=== PATIENT | female | born 1975 ===

== ENCOUNTER 2021-03-20 03:18 | Outpatient (CLI) | payer MEDICAID, SELFPAY ==
[2021-03-20 10:59] LABS: Source Nasal/Nares
[2021-03-20 12:54] LABS: COVID-19 PCR Negative (Negative)
== END 2021-03-20 03:19 | disposition home or self-care (01) ==
PROVIDERS: Visit Provider Otolaryngology
DX: Z20.822 Contact with and (suspected) exposure to COVID-19 (principal); Z01.818 Encounter for other preprocedural examination
CPT/HCPCS: 87635

== ENCOUNTER 2022-01-04 21:40 | Outpatient (CLI) | payer MEDICAID, SELFPAY ==
--- NOTE | 2022-01-04 14:21 | DI.RAD_ITS ---
Exam(s) XR TOE RT GREAT EXAM: XR TOE RT GREAT CLINICAL HISTORY: FELL, INJURY RT GREAT TOE, SLIGHTLY MALALIGNED, ECCHYMOSIS, SWELLING. TECHNIQUE: 2D digital imaging was performed. Three images were obtained. COMPARISON: No exams were available for comparison FINDINGS: BONES: No acute fracture is present. No bony destructive lesion is seen. JOINTS: No dislocation present. SOFT TISSUE: Normal. IMPRESSION: No evidence of acute fracture, dislocation, or subluxation. DATA REPOSITORY: RADIATION DOSE DELIVERED:
== END 2022-01-04 22:00 ==
PROVIDERS: Visit Provider Physician Assistant Medical
DX: M79.674 Pain in right toe(s) (principal)
CPT/HCPCS: 73660